=== PATIENT | male | born 1980 | race Caucasian/White ===

== ENCOUNTER 2020-12-20 17:13 | Emergency (ER) | payer MEDICAID ==
[~2020-12-20] VITALS: Ht 177.8 cm; Wt 75.5 kg
[~2020-12-20 17:13] MED LIST: None per pt
--- NOTE | 2020-12-20 17:31 | NUR ---
EAMON RN: NOT IN LOBBY
[2020-12-20 18:25] VITALS: BP 138/70
--- NOTE | 2020-12-20 18:28 | NUR ---
first contact with pt. pt c/o left sided groin pain with skin rash on buttock area. pt stated "it is itchy and pain" pt denies urinary symptoms, bloody stool, and abd pain. pt's aox4. resps even and unlabored. bp/spo2 monitors in place. call light within reach.
--- NOTE | 2020-12-20 18:53 | NUR ---
report given to aletha an.
--- NOTE | 2020-12-20 18:59 | NUR ---
report from issa assumed care of pt at this time, pt in nad awaiting md to see pt
== END 2020-12-20 19:29 | disposition left against medical advice (07) ==
LOC: ED 19:10
DX: R21 Rash and other nonspecific skin eruption (principal)
CPT/HCPCS: 99281